=== PATIENT | female | born 1990 | race Two or more races ===

== ENCOUNTER → 2020-06-14 | Day surgery (SDC) | payer OTHER ==
[~2020-06-14] MED LIST: TAMS0.4C PO
== END | disposition home or self-care (01) ==
LOC: ADM 06-07 08:15 → CIR.AMB 08:15
PROVIDERS: ATTEND Urology
DX: N21.0 Calculus in bladder (principal)

== ENCOUNTER → 2022-11-27 07:11 | Outpatient (CLI) | payer OTHER | END | disposition home or self-care (01) | LOC: LAB 07:11 | PROVIDERS: ATTEND Obstetrics & Gynecology | DX: Z20.828 Contact with and (suspected) exposure to other viral communicable diseases (principal); Z20.818 Contact with and (suspected) exposure to other bacterial communicable diseases ==